=== PATIENT | female | born 1970 | race Caucasian/White ===

== ENCOUNTER 2022-10-21 06:34 | Outpatient (REF) | payer OTHER, SELFPAY ==
[2022-10-21 11:16] LABS: MANUAL DIFF FLAG NO
[2022-10-21 11:32] LABS: Basophils Percent Auto 0.5 % (0-2); Hematocrit 41.6 % (37.0-47.0); Hemoglobin 14.1 g/dl (12.0-16.0); Lymphocytes Absolute Auto 0.8 X10*3/uL (1.2-4.9); Mean Corpuscular HGB Conc 33.9 g/dl (31.0-35.0); Mean Corpuscular Hemoglobin 28.7 pg (27.0-33.0); Mean Corpuscular Volume 84.6 fL (80.0-98.0); Mean Platelet Volume 9.8 fL (9.4-12.3); Monocytes Absolute Auto 0.3 X10*3/uL (0.1-1.2); Monocytes Percent Auto 6.4 % (2-11); Neutrophils Absolute Auto 2.8 x10*3/uL (2.0-8.3); Neutrophils Percent Auto 72.1 % (45-73); Platelet Count 124 X10*3/uL (160-400); Red Blood Count 4.92 X10*6/uL (4.20-5.50); Red Cell Distribution Width 12.6 % (11.0-16.0); White Blood Count 3.9 X10*3/uL (4.8-10.8)
[2022-10-21 12:43] LABS: Alanine Aminotransferase 21 U/L (0-31); Albumin Level 4.4 g/dL (3.5-5.0); Alkaline Phosphatase 59 U/L (39-117); Anion Gap 11 (12-20); Aspartate Amino Transferase 19 U/L (5-31); Bilirubin Total 0.6 mg/dL (0.0-1.0); Blood Urea Nitrogen 12 mg/dL (9-16); Calcium 9.6 mg/dL (8.4-10.2); Carbon Dioxide 27 mmol/L (22-29); Chloride 109 mmol/L (96-108); Cholesterol 235 mg/dL; Estimated Glomerular Filt Rate > 60; Glucose Fasting 107 mg/dL (60-99); HDL Cholesterol 77 mg/dL; LDL Cholesterol Calculated 140 mg/dl; Potassium 4.1 mmol/L (3.3-5.1); Sodium 143 mmol/L (135-145); Total Protein 6.8 g/dL (6.5-8.0); Triglycerides 93 mg/dL
[2022-10-21 13:01] LABS: Ferritin 25 ng/mL (10-250); Folate 18.7 ng/mL (> or = 4.0); Vitamin B12 528 pg/mL (200-900)
[2022-10-29 13:58] LABS: Vitamin D 25-OH, D2 <4 ng/mL; Vitamin D 25-OH, D3 28 ng/mL; Vitamin D 25-OH, Total 28 ng/mL (30-100)
== END 2022-10-21 06:35 | disposition home or self-care (01) ==
LOC: HO.HMGCLDS 06:34
PROVIDERS: PCP Internal Medicine; Visit Provider Internal Medicine
DX: Z00.01 Encounter for general adult medical examination with abnormal findings (principal); J45.20 Mild intermittent asthma, uncomplicated; K90.0 Celiac disease; Z13.220 Encounter for screening for lipoid disorders
CPT/HCPCS: 36415; 80053; 80061; 82306; 82607; 82728; 82746; 85025

== ENCOUNTER 2023-05-06 09:15 | Outpatient (REF) | payer OTHER, SELFPAY | END 2023-05-06 09:16 | disposition home or self-care (01) | LOC: HO.HOSX 09:15 | PROVIDERS: Visit Provider Orthopaedic Surgery | DX: Z13.89 Encounter for screening for other disorder (principal) ==

== ENCOUNTER 2023-05-06 11:36 | Outpatient (AMB) | payer OTHER, SELFPAY ==
--- NOTE | 2023-05-06 11:41 | MHC.OFFVIS ---
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 The patient states that she injured her right knee while running approximately 3 years ago. She twisted her knee and had acute onset of pain along the medial aspect of her knee. Since that time she has not been able to run or cycle because of her knee pain. She states that her right knee will give out several times per day. She has done physical therapy which aggravated her pain. She has had injections in the past which gave her no relief. She has also tried Tylenol and anti-inflammatory medicines which gave her minimal relief. Allergies Penicillins Allergy (Mild, Verified 05/06/23 11:50) Hives Sulfa (Sulfonamide Antibiotics) Allergy (Mild, Verified 05/06/23 11:50) Hives Medication List - Last Reconciled 05/06/23 by Natalio Braun MD albuterol sulfate 90 mcg/actuation (ProAir HFA) 1 inh inhalation QID PRN 30 days zolpidem (Ambien) 5 mg PO BEDTIME PFSH Family History (System 03/10/23 @ 13:29 by Celina Adkins) Mother Depression Social History (System 03/10/23 @ 13:29 by Celina Adkins) Housing: Apartment Patient Tobacco Use Status: Never used Tobacco e-Cigarette/Vaping Use: Never Used service: No Current occupational status: employed Current occupation: [employer] Cognitive needs: No Hearing needs: No Vision needs: Yes Physical Exam Const Other: Well-nourished well-developed very friendly female awake alert and oriented x3 in no acute distress Extrem Other: Bilateral lower extremity examination shows good capillary refill, no skin lesions noted, normal sensation light touch Right knee examination shows a minimal effusion, minimal crepitus with range of motion, tenderness along her medial joint line, positive Bryce's test, no instability Assessment & Plan Assessment & Plan (1) Right knee pain: Code(s): M25.561 - Pain in right knee Plan Ms. Ornelas presents with progressively worsening right knee pain and mechanical symptoms most likely due to a tear of her medial meniscus. Thus, I will send the patient for an MRI of her right knee for further evaluation. I will see her back once the MRI is completed to discuss the findings and treatment options. Feel free to call me at any time should questions regarding her orthopedic management arise. Thank you very much for asking me to see this very friendly patient. I spent 22 minutes in reviewing the patient's records and imaging studies, seeing the patient and documenting in the medical record. Orders: Orders MR knee RT wo con Today M25.561 - Pain in right knee Coding Level of Care Code New Pt Level 2 (09753) Diagnoses Right knee pain M25.561
[2023-05-06 11:50] VITALS: BMI 23.8
== END 2023-05-06 12:09 | disposition home or self-care (01) ==
PROVIDERS: PCP Internal Medicine; Visit Provider Orthopaedic Surgery
DX: M25.561 Pain in right knee (principal)
CPT/HCPCS: 99202

== ENCOUNTER 2023-10-27 14:30 | Outpatient (AMB) | payer OTHER, SELFPAY ==
--- NOTE | 2023-10-27 14:33 | MHC.PC.OV ---
Vital Signs 10/27/23 14:34 Height 5 ft 9 in Weight 172 lb 2 oz BMI 25.4 BP 134/92 H Blood Pressure Location Lt brachial Position Sitting Pulse 81 Pulse Source Pulse Oximeter Pulse Oximetry (%) 97 Oxygen Delivery Method Room Air Intake Visit Reasons: PE Allergies Penicillins Allergy (Mild, Verified 10/27/23 14:36) Hives Sulfa (Sulfonamide Antibiotics) Allergy (Mild, Verified 10/27/23 14:36) Hives Medication List - Last Reconciled 10/27/23 by Keena Mann MD No Known Home Meds Tobacco use date assessed: 10/27/23 Dental Screening Dental Screen Date: 10/27/23 Did you have a dental visit in the last 12 months?: Yes Did you have a dental problem in the last 6 months where you did not have access to dental care?: No Was dental information given to patient?: Patient has dentist HPI PE HPI Details Patient is a 53-year-old female came in today for physical exam Last year patient had labs it showed slightly low white count impaired fasting sugar and slightly low vitamin-D level Repeat lab order is already in the system Mammogram was this month at [facility] Patient had hysterectomy in 2011 secondary to fibroid tumor cervix was removed Colonoscopy was in 2021 in [place] patient also had EGD done at that time however we do not have the report Patient says that she has a report at home and she will provide with a copy. 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 She does have pain in her right knee off and on especially if she runs it becomes swollen Patient had MRI of her knee in 2022 that showed arthritic changes Patient will return in 1 year for physical exam PFSH Family History Mother Depression Social History Housing: Apartment Patient Tobacco Use Status: Never used Tobacco e-Cigarette/Vaping Use: Never Used service: No Current occupational status: employed Current occupation: [employer] Cognitive needs: No Hearing needs: No Vision needs: Yes Questionnaire PHQ-9 Over the last 2 weeks, how often have you been bothered by any of the following problems? 1. Little interest or pleasure in doing things: not at all 2. Feeling down, depressed, or hopeless: not at all 3. Trouble falling or staying asleep, or sleeping too much: not at all 4. Feeling tired or having little energy: not at all 5. Poor appetite or overeating: not at all 6. Feeling bad about yourself - or that you are a failure or have let yourself or your family down: not at all 7. Trouble concentrating on things, such as reading the newspaper or watching television: not at all 8. Moving or speaking so slowly that other people could have noticed. Or the opposite - being so fidgety or restless that you have been moving around a lot more than usual: not at all 9. Thoughts that you would be better off or of hurting yourself in some way: not at all Total score: 0 Depression Screening Interpretation: Negative Depression Screening Done: Yes 92373 - PHQ-9 Billing: Yes Source: Developed by Drs. Ivan Mueller, Kenia Alberts, Anatoly Minor and colleagues, with an educational jaxson from [employer]. Thrive Questionnaire Date Thrive assessed: 10/27/23 I am a: Patient What is your living situation today?: I have a steady place to live Within the past 12 months, did the food you bought not last and you didn't have the money to get more?: Never true Within the past 12 months, did you worry whether your food would run out before you got money to buy more?: Never true Do you have trouble paying for medicines?: No Do you have trouble getting transportation to medical appointments?: No Do you have trouble paying your heating and electricity bill?: No Do you have trouble taking care of your child, family member or friend?: No Do you have trouble with day-to-day activities such as bathing, preparing meals, shopping, managing finances, etc.?: No Are you currently unemployed and looking for a job?: No Are you interested in more education?: No Please select the resources that you would like help with: None Currently or been in a relationship where the following occur: no concerns reported THRIVE Score: 0 AUDIT C Alcohol Use Questionnaire (AUDIT-C) 1. How often do you have a drink containing alcohol?: Monthly or less 2. How many drinks containing alcohol do you have on a typical day when you are drinking?: 1 or 2 3. How often do you have six or more drinks on one occasion?: Never Total Score: 1 Score Reviewed/Action Taken: Yes MARGARET-7 AMB Questionnaire MARGARET-7 Date MARGARET - 7 assessed: 10/27/23 Feeling nervous, anxious, or on edge: 0 = Not at all Not being able to stop or control worryin = Not at all Worrying too much about different things: 0 = Not at all Trouble relaxin = Not at all Being so restless that it is hard to sit still: 0 = Not at all Becoming easily annoyed or irritable: 0 = Not at all Feeling afraid as if something awful might happen: 0 = Not at all Total MARGARET-7 score (0-4 normal; 5-9 mild; 10-14 moderate; 15-21 severe): 0 Source: Developed by Drs. Ivan Mueller, Kenia Alberts, Anatoly Minor and colleagues, with an educational jaxson from [employer]. MARGARET-7 Assessment Billing MARGARET-7 Assessment Tool: MARGARET-7 Assessment [id number] Review of Systems Const Denies chills, Denies fever(s) and Denies headache(s) Eyes Denies blurry vision ENT Denies headache(s), Denies nasal discharge, Denies nasal obstruction, Denies odynophagia and Denies sinus pain Card Denies chest pain at rest and Denies chest pain with activity Resp Denies cough and Denies hemoptysis GI Denies diarrhea, Denies odynophagia, Denies vomiting and Denies hematemesis Reports as per HPI Musc Denies abnormal gait Skin/Breast Reports as per HPI Neuro Denies Neuro-related abnormal movements, Denies Abnormal speech present, Denies abnormal gait, Denies headache(s) and Denies Sensory deficit (Neuro) Psych Denies mood swings and Denies paranoia Endo Reports as per HPI Braxton/Lymph Reports as per HPI Aller/Immun Reports as per HPI Physical exam (Primary Care) Vital Signs: Last Vital Signs Pulse 81 10/27/23 14:34 BP 134/92 H 10/27/23 14:34 Pulse Ox 97 10/27/23 14:34 Oxygen Delivery Method Room Air 10/27/23 14:34 BMI result Body Mass Index 25.4 Tobacco/Smoking Status: Tobacco use Status Tobacco use date assessed 10/27/23 10/27/23 14:37 Patient Tobacco Use Status Never used Tobacco 10/27/23 14:35 e-Cigarette/Vaping Use Never Used 10/27/23 14:35 PHQ-9: PHQ-9 Score PHQ-9: Total score 0 10/27/23 14:37 Depression Screening Interpretation: Negative Thrive Assessment: Date of Thrive Assessment Date Thrive assessed 10/27/23 10/27/23 14:37 Currently or been in a relationship where the following occur: no concerns reported Const General: cooperative, comfortable and no acute distress Orientation/consciousness: patient oriented x3 HENMT Head: Yes normocephalic and Yes atraumatic Eyes General: appearance normal, both eyes and all related structures Pupils: Equal, round and reactive pupils present EOM: EOMs intact bilaterally Neck Neck: Yes supple and No lymphadenopathy Thyroid: Thyroid normal Lymphatic: no lymphadenopathy noted Chest Breast/axilla palpation: normal palpation of the breasts Resp Effort & Inspection: normal respiratory effort and able to speak in complete sentences Auscultation: clear to auscultation bilaterally Cardio Heart sounds: S1 normal heart sound present and S2 normal heart sound present GI Palpation (GI): Soft to palpation and nontender Auscultation: normal bowel sounds General: Yes no CVA tenderness Back/Spine/Pelvis Back: no CVA tenderness Skin General skin exam: elasticity normal and turgor normal Neuro General: patient oriented x3 and gait normal Cranial nerves: Yes Equal, round and reactive pupils present Speech: No Abnormal speech present Sensory Exam: No Sensory deficit (Neuro) Coordination: tandem gait normal and Romberg test negative Extrem General: Yes normal exam except as noted and No edema Assessment and Plan Assessment & Plan (1) Encounter for general adult medical examination without abnormal findings: Code(s): Z00.00 - Encounter for general adult medical examination without abnormal findings (2) History of idiopathic thrombocytopenic purpura: Code(s): Z86.2 - Personal history of diseases of the blood and blood-forming organs and certain disorders involving the immune mechanism (3) Neutropenia: Code(s): D70.9 - Neutropenia, unspecified Qualifiers: Neutropenia type: unspecified Qualified Code(s): D70.9 - Neutropenia, unspecified (4) Vitamin D deficiency: Code(s): E55.9 - Vitamin D deficiency, unspecified (5) Impaired fasting blood sugar: Code(s): R73.01 - Impaired fasting glucose (6) Osteoarthritis of right knee: Code(s): M17.11 - Unilateral primary osteoarthritis, right knee Qualifiers: Osteoarthritis type: primary Qualified Code(s): M17.11 - Unilateral primary osteoarthritis, right knee Plan Patient is a 53-year-old female came in today for physical exam Last year patient had labs it showed slightly low white count impaired fasting sugar and slightly low vitamin-D level Repeat lab order is already in the system Mammogram was this month at [facility] Patient had hysterectomy in 2011 secondary to fibroid tumor cervix was removed Colonoscopy was in 2021 in [place] patient also had EGD done at that time however we do not have the report Patient says that she has a report at home and she will provide with a copy. 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 She does have pain in her right knee off and on especially if she runs it becomes swollen Patient had MRI of her knee in 2022 that showed arthritic changes Patient will return in 1 year for physical exam Coding Level of Care Code Est Pt Prev Care 40-64y(98157) Diagnoses Encounter for general adult medical examination without abnormal findings Z00.00 History of idiopathic thrombocytopenic purpura Z86.2 Neutropenia, unspecified type D70.9 Neutropenia type: unspecified Vitamin D deficiency E55.9 Impaired fasting blood sugar R73.01 Primary osteoarthritis of right knee M17.11 Osteoarthritis type: primary Additional Codes MARGARET-7 Assessment Billing - MARGARET-7 Assessment Tool: MARGARET-7 Assessment [id number] ([id number])
[2023-10-27 14:34] VITALS: BP 134/92; PULSE 81; O2SAT 97; BMI 25.4
== END 2023-10-27 15:00 | disposition home or self-care (01) ==
PROVIDERS: Visit Provider Internal Medicine
DX: Z00.00 Encounter for general adult medical examination without abnormal findings (principal); Z86.2 Personal history of diseases of the blood and blood-forming organs and certain disorders involving the immune mechanism; D70.9 Neutropenia, unspecified; E55.9 Vitamin D deficiency, unspecified; R73.01 Impaired fasting glucose; M17.11 Unilateral primary osteoarthritis, right knee
CPT/HCPCS: 99396

== ENCOUNTER 2023-11-29 08:20 | Outpatient (REF) | payer OTHER, SELFPAY ==
[2023-11-29 11:41] LABS: MANUAL DIFF FLAG NO
[2023-11-29 11:58] LABS: Basophils Percent Auto 0.2 % (0-2); Eosinophils Absolute Auto 0.1 X10*3/uL (0.0-0.4); Eosinophils Percent Auto 1.1 % (0-4); Hematocrit 38.4 % (37.0-47.0); Hemoglobin 13.3 g/dl (12.0-16.0); Imm Gran Abs Auto 0.01 X10*3/uL (0.00-0.03); Imm Gran Pct Auto 0.2 % (0.0-0.4); Lymphocytes Absolute Auto 0.6 X10*3/uL (1.2-4.9); Lymphocytes Percent Auto 12.5 % (20-40); Mean Corpuscular HGB Conc 34.6 g/dl (31.0-35.0); Mean Corpuscular Hemoglobin 29.6 pg (27.0-33.0); Mean Corpuscular Volume 85.3 fL (80.0-98.0); Mean Platelet Volume 10.3 fL (9.4-12.3); Monocytes Absolute Auto 0.3 X10*3/uL (0.1-1.2); Monocytes Percent Auto 6.7 % (2-11); Neutrophils Absolute Auto 3.6 x10*3/uL (2.0-8.3); Neutrophils Percent Auto 79.3 % (45-73); Platelet Count 110 X10*3/uL (160-400); Red Cell Distribution Width 12.6 % (11.0-16.0); White Blood Count 4.5 X10*3/uL (4.8-10.8)
[2023-11-29 12:05] LABS: Estimated Average Glucose 105 mg/dL; Hemoglobin A1c % 5.3 % (<6.0)
[2023-11-29 12:29] LABS: Alanine Aminotransferase 22 U/L (0-31); Albumin Level 4.2 g/dL (3.5-5.0); Alkaline Phosphatase 62 U/L (39-117); Anion Gap 10 (12-20); Aspartate Amino Transferase 20 U/L (5-31); Bilirubin Total 0.4 mg/dL (0.0-1.0); Blood Urea Nitrogen 12 mg/dL (9-16); Calcium 9.6 mg/dL (8.4-10.2); Carbon Dioxide 28 mmol/L (22-29); Chloride 108 mmol/L (96-108); Cholesterol 207 mg/dL (<200); Estimated Glomerular Filt Rate > 60; Glucose Fasting 105 mg/dL (60-99); HDL Cholesterol 70 mg/dL (>40); LDL Cholesterol Calculated 114 mg/dL (<100); Potassium 4.2 mmol/L (3.3-5.1); Sodium 142 mmol/L (135-145); Total Protein 6.9 g/dL (6.5-8.0); Triglycerides 119 mg/dL (<150)
[2023-12-03 10:38] LABS: Vitamin D 25-OH, D2 <4 ng/mL; Vitamin D 25-OH, D3 27 ng/mL; Vitamin D 25-OH, Total 27 ng/mL (30-100)
== END 2023-11-29 08:21 | disposition home or self-care (01) ==
LOC: HO.HMGCLDS 08:20
PROVIDERS: PCP Internal Medicine; Visit Provider Internal Medicine
DX: G47.9 Sleep disorder, unspecified (principal); Z86.2 Personal history of diseases of the blood and blood-forming organs and certain disorders involving the immune mechanism; D69.6 Thrombocytopenia, unspecified; D70.9 Neutropenia, unspecified; E55.9 Vitamin D deficiency, unspecified; R73.01 Impaired fasting glucose
CPT/HCPCS: 36415; 80053; 80061; 82306; 83036; 85025

== ENCOUNTER 2024-11-01 15:23 | Outpatient (AMB) | payer OTHER, SELFPAY ==
[2024-11-01 15:25] VITALS: BP 120/80; PULSE 86; O2SAT 98; BMI 24.8
--- NOTE | 2024-11-01 15:25 | A.OFFPC_ITS ---
Vital Signs 11/01/24 15:25 Height 5 ft 9 in Weight 168 lb BMI 24.8 BP 120/80 Blood Pressure Location Lt brachial Position Sitting Pulse 86 Pulse Source Pulse Oximeter Pulse Oximetry (%) 98 Oxygen Delivery Method Room Air Intake Visit Reasons: PE Amortization Schedule Clerk Required: No Accompanied by: Self / Same As Patient Allergies soy Allergy (Intermediate, Verified 11/01/24 15:31) Hives johnson Allergy (Mild, Verified 11/01/24 15:31) Hives peas Allergy (Mild, Verified 11/01/24 15:31) Hives Penicillins Allergy (Mild, Verified 11/01/24 15:31) Hives Sulfa (Sulfonamide Antibiotics) Allergy (Mild, Verified 11/01/24 15:31) Hives Medication List - Last Reconciled 11/01/24 by Keena Mann MD No Known Home Meds Tobacco use date assessed: 11/01/24 Dental Screening Dental Screen Date: 11/01/24 Did you have a dental visit in the last 12 months?: Yes Did you have a dental problem in the last 6 months where you did not have access to dental care?: No Was dental information given to patient?: Patient has dentist HPI PE HPI Details Physical exam appointment - The patient is a 54 year old female pr esenting for a wellness visit and management of her chronic conditions, particularly concerns regarding possible autoimmune flare. - She reported a painful condition affec ting her feet, particularly when exposed to cold temperatures, which she attributes to Raynaud's Phenomenon, a condition she has suspected for some time. - In her past, she mentioned having a po sitive antinuclear antibody test and had been evaluated by a hunting sales associate for symptoms including Raynaud's and swelling, suspected to be linked to Sjogren's Syndrome or Lupus. These symptoms seemed to have gone into remission suddenly. - Recently, she experienced hives, predo minantly on her legs and some on her forehead, following intake of a new multivitamin containing CoQ10, suggesting an allergy. - She noted her platelet counts have his torically been low, mentioning a diagnosis of Idiopathic Thrombocytopenic Purpura (ITP) that was confirmed during her recovery from recent surgery. - The patient has chronic symptoms such as a torn meniscus in the knee that causes her soreness, primarily when performing certain movements. - Fasting blood sugars have been elevate d around 105 mg/dL for several years. - On a prior colonoscopy in 2021, she di d not provide details of the findings yet. - The patient had a hysterectomy in 2011 due to a fibroid tumor. Medical History: - Sjogren's Syndrome ? - Autoimmune Disorder (possible Lupus) - Idiopathic Thrombocytopenic Purpura (I TP) - Raynaud's Phenomenon - Suspected Meniscal Tear Surgical History: - Hysterectomy (2011, secondary to fibro id tumor) - Rotator Cuff Surgery on the right side (April, date unspecified) Social History: - Reduced physical activities including less biking and yoga. - Recently started running again, essence ott to run approximately three miles with mild soreness afterwards. Family History: - Observations of similar symptoms toyin ott in the patient?s daughter, related to suspected auto-immune conditions (detailed diagnoses or confirmation not provided). Health Maintenance - Mammogram completed recently at [facility]. - Colonoscopy performed in 2021, by Dr. Felicity Alarcon within normal limit - OBGYN visit up-to-date. - Vitamin D supplementation was ongoing; however, currently stopped due to recent allergic reaction linked to CoQ10. 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 Diagnostic results Labs: - Slightly low white blood cell counts (between 3.9 to 4.5 k/uL, with normal being 4.8 k/uL) - Fasting blood sugar consistently at 10 5 mg/dL. - Historical positive SPENSER test. Patient Instructions - Avoid exposure to cold to manage Olga Lidia ud's Phenomenon. - Discontinue any supplements containing CoQ10 due to suspected allergy.. - Monitor symptoms related to autoimmune conditions and consult a hunting sales associate. - Follow up with completed labs, sharing results from upcoming tests with the specialist. - Schedule regular wellness checks and b ring any notable family health changes to attention. Review of Systems - General: No fever no chills - Neurological: No headaches no dizzin ess - Ear nose throat: No sore throat no hearing difficulty no ear pain - Cardiovascular: No syncope, no chest pain, no palpitations - Gastrointestinal: No nausea vomiting or diarrhea - Endocrine: No polyuria polydipsia no heat intolerance - Genitourinary: No dysuria - Skin: No new complaints Physical Exam General: Cooperative, healthy appearing, comfortable, no acute distress Orientation: Patient oriented x3 Head: Normal to inspection Ears: Within normal limit visually Nose: Normal external nose present Face and sinus: Normal facial exam Eyes: Appearance normal, extraocular movement intact pupils reactive Neck: Normal visual inspection and supple Respiratory: Normal respiratory effort and able to speak in complete sentences. Clear to auscultation, no stridor Cardiovascular: S1 and S2 RRR Breast exam by herself GI: Normal to inspection. Soft to palpation and nontender Skin: Turgor normal, no acute findings. Patient reports hives on legs and forehead, currently resolving. Neuro: Patient oriented x3, motor sensory intact, balance intact, tandem pass Extremities: Normal to inspection. PFSH Surgical History S/P JOEL (total abdominal hysterectomy) S/P rotator cuff surgery Family History Mother Depression Mental health problem Father Diabetes 1.5, managed as type 1 Social History Housing: Apartment Patient Tobacco Use Status: Never used Tobacco e-Cigarette/Vaping Use: Never Used service: No Current occupational status: employed Current occupation: [employer] Cognitive needs: No Hearing needs: No Vision needs: Yes Questionnaire PHQ-9 Over the last 2 weeks, how often have you been bothered by any of the following problems? 1. Little interest or pleasure in doing things: not at all 2. Feeling down, depressed, or hopeless: not at all 3. Trouble falling or staying asleep, or sleeping too much: not at all 4. Feeling tired or having little energy: not at all 5. Poor appetite or overeating: not at all 6. Feeling bad about yourself - or that you are a failure or have let yourself or your family down: not at all 7. Trouble concentrating on things, such as reading the newspaper or watching television: not at all 8. Moving or speaking so slowly that other people could have noticed. Or the opposite - being so fidgety or restless that you have been moving around a lot more than usual: not at all 9. Thoughts that you would be better off or of hurting yourself in some way: not at all Total score: 0 Depression Screening Interpretation: Negative Depression Screening Done: Yes 08761 - PHQ-9 Billing: Yes Source: Developed by Drs. Ivan Mueller, Kenia Alberts, Anatoly Minor and colleagues, with an educational jaxson from [employer]. Thrive Questionnaire Date Thrive assessed: 11/01/24 I am a: Patient What is your living situation today?: I have a steady place to live Within the past 12 months, did the food you bought not last and you didn't have the money to get more?: Never true Within the past 12 months, did you worry whether your food would run out before you got money to buy more?: Never true Do you have trouble paying for medicines?: No Do you have trouble getting transportation to medical appointments?: No Do you have trouble paying your heating and electricity bill?: No Do you have trouble taking care of your child, family member or friend?: No Do you have trouble with day-to-day activities such as bathing, preparing meals, shopping, managing finances, etc.?: No Are you currently unemployed and looking for a job?: No Are you interested in more education?: No Please select the resources that you would like help with: None Currently or been in a relationship where the following occur: No concerns rep orted THRIVE Score: 0 AUDIT C Alcohol Use Questionnaire (AUDIT-C) 1. How often do you have a drink containing alcohol?: Monthly or less 2. How many drinks containing alcohol do you have on a typical day when you are drinking?: 1 or 2 3. How often do you have six or more drinks on one occasion?: Never Total Score: 1 Score Reviewed/Action Taken: Yes MARGARET-7 AMB Questionnaire MARGARET-7 Date MARGARET - 7 assessed: 11/01/24 Feeling nervous, anxious, or on edge: 0 = Not at all Not being able to stop or control worryin = Not at all Worrying too much about different things: 0 = Not at all Trouble relaxin = Not at all Being so restless that it is hard to sit still: 0 = Not at all Becoming easily annoyed or irritable: 0 = Not at all Feeling afraid as if something awful might happen: 0 = Not at all Total MARGARET-7 score (0-4 normal; 5-9 mild; 10-14 moderate; 15-21 severe): 0 Source: Developed by Drs. Ivan Mueller, Kenia Alberts, Anatoly Minor and colleagues, with an educational jaxson from [employer]. MARGARET-7 Assessment Billing MARGARET-7 Assessment Tool: MARGARET-7 Assessment 31262 Physical exam (Primary Care) Vital Signs: Last Vital Signs Pulse 86 11/01/24 15:25 BP 120/80 11/01/24 15:25 Pulse Ox 98 11/01/24 15:25 Oxygen Delivery Method Room Air 11/01/24 15:25 BMI result Body Mass Index 24.8 Tobacco/Smoking Status: Tobacco use Status Tobacco use date assessed 11/01/24 11/01/24 15:27 Patient Tobacco Use Status Never used Tobacco 11/01/24 15:27 e-Cigarette/Vaping Use Never Used 11/01/24 15:27 PHQ-9: PHQ-9 Score PHQ-9: Total score 0 11/01/24 15:33 Depression Screening Interpretation: Negative Thrive Assessment: Date of Thrive Assessment Date Thrive assessed 11/01/24 11/01/24 15:33 Currently or been in a relationship where the following occur: No concerns reported Coding Level of Care Code Est Pt Level 3 (44446) Est Pt Prev Care 40-64y(49306) Diagnoses Encounter for general adult medical examination without abnormal findings Z00.00 Autoimmune disorder D89.89 Multiple food allergies Z91.018 Thrombocytopenia D69.6 Neutropenia, unspecified type D70.9 Neutropenia type: unspecified Vitamin D deficiency E55.9 Impaired fasting blood sugar R73.01 Raynaud's phenomenon without gangrene I73.00 Raynaud?s-associated gangrene presence: without gangrene SPENSER positive R76.8 Additional Codes MARGARET-7 Assessment Billing - MARGARET-7 Assessment Tool: MARGARET-7 Assessment 29430 ([id number]) PHQ-9 - 02227 - PHQ-9 Billing: Yes ([id number]) Assessment & Plan Assessment & Plan (1) Encounter for general adult medical examination without abnormal findings: Code(s): Z00.00 - Encounter for general adult medical examination without abnormal findings Category: Medical (2) Autoimmune disorder: Code(s): D89.89 - Other specified disorders involving the immune mechanism, not elsewhere classified Category: Medical (3) Multiple food allergies: Code(s): Z91.018 - Allergy to other foods Category: Medical (4) Thrombocytopenia: Code(s): D69.6 - Thrombocytopenia, unspecified Category: Medical (5) Neutropenia: Code(s): D70.9 - Neutropenia, unspecified Category: Medical Qualifiers: Neutropenia type: unspecified Qualified Code(s): D70.9 - Neutropenia, unspecified (6) Vitamin D deficiency: Code(s): E55.9 - Vitamin D deficiency, unspecified Category: Medical (7) Impaired fasting blood sugar: Code(s): R73.01 - Impaired fasting glucose Category: Medical (8) Raynaud's phenomenon: Code(s): I73.00 - Raynaud's syndrome without gangrene Category: Medical Qualifiers: Raynaud?s-associated gangrene presence: without gangrene Qualified Code(s): I73.00 - Raynaud's syndrome without gangrene (9) SPENSER positive: Code(s): R76.8 - Other specified abnormal immunological findings in serum Category: Medical Plan Physical exam appointment - The patient is a 54 year old female presenting for a wellness visit and management of her chronic conditions, particularly concerns regarding possible autoimmune flare. - She reported a painful condition affecting her feet, particularly when exposed to cold temperatures, which she attributes to Raynaud's Phenomenon, a condition she has suspected for some time. - In her past, she mentioned having a positive antinuclear antibody test and had been evaluated by a hunting sales associate for symptoms including Raynaud's and swelling, suspected to be linked to Sjogren's Syndrome or Lupus. These symptoms seemed to have gone into remission suddenly. - Recently, she experienced hives, predominantly on her legs and some on her forehead, following intake of a new multivitamin containing CoQ10, suggesting an allergy. - She noted her platelet counts have historically been low, mentioning a diagnosis of Idiopathic Thrombocytopenic Purpura (ITP) that was confirmed during her recovery from recent surgery. - The patient has chronic symptoms such as a torn meniscus in the knee that causes her soreness, primarily when performing certain movements. - Fasting blood sugars have been elevated around 105 mg/dL for several years. - On a prior colonoscopy in 2021, she did not provide details of the findings yet. - The patient had a hysterectomy in 2011 due to a fibroid tumor. Medical History: - Sjogren's Syndrome ? - Autoimmune Disorder (possible Lupus) - Idiopathic Thrombocytopenic Purpura (ITP) - Raynaud's Phenomenon - Suspected Meniscal Tear Surgical History: - Hysterectomy (2011, secondary to fibroid tumor) - Rotator Cuff Surgery on the right side (April, date unspecified) Social History: - Reduced physical activities including less biking and yoga. - Recently started running again, managing to run approximately three miles with mild soreness afterwards. Family History: - Observations of similar symptoms arising in the patient?s daughter, related to suspected auto-immune conditions (detailed diagnoses or confirmation not provided). Health Maintenance - Mammogram completed recently at [facility]. - Colonoscopy performed in 2021, - OBGYN visit up-to-date. - Vitamin D supplementation was ongoing; however, currently stopped due to recent allergic reaction linked to CoQ10. Employment - Works at [employer], prefers nearby location for care. Diagnostic results Labs: - Slightly low white blood cell counts (between 3.9 to 4.5 k/uL, with normal being 4.8 k/uL) - Fasting blood sugar consistently at 105 mg/dL. - Historical positive SPENSER test. Patient Instructions - Avoid exposure to cold to manage Raynaud's Phenomenon. - Discontinue any supplements containing CoQ10 due to suspected allergy.. - Monitor symptoms related to autoimmune conditions and consult a hunting sales associate. - Follow up with completed labs, sharing results from upcoming tests with the specialist. - Schedule regular wellness checks and bring any notable family health changes to attention. Orders: Orders Complete Blood Count Auto Diff Today D69.6 - Thrombocytopenia, unspecified, D70.9 - Neutropenia, unspecified, D89.89 - Other specified disorders involving the immune mechanism, not elsewhere classified, E55.9 - Vitamin D deficiency, unspecified, I73.00 - Raynaud's syndrome without gangrene, R73.01 - Impaired fasting glucose, R76.8 - Other specified abnormal immunological findings in serum, Z00.00 - Encounter for general adult medical examination without abnormal findings, Z91.018 - Allergy to other foods Comprehensive [place]. Panel Fast Today D69.6 - Thrombocytopenia, unspecified, D70.9 - Neutropenia, unspecified, D89.89 - Other specified disorders involving the immune mechanism, not elsewhere classified, E55.9 - Vitamin D deficiency, unspecified, I73.00 - Raynaud's syndrome without gangrene, R73.01 - Impaired fasting glucose, R76.8 - Other specified abnormal immunological findings in serum, Z00.00 - Encounter for general adult medical examination without abnormal findings, Z91.018 - Allergy to other foods Lipid Panel Today D69.6 - Thrombocytopenia, unspecified, D70.9 - Neutropenia, unspecified, D89.89 - Other specified disorders involving the immune mechanism, not elsewhere classified, E55.9 - Vitamin D deficiency, unspecified, I73.00 - Raynaud's syndrome without gangrene, R73.01 - Impaired fasting glucose, R76.8 - Other specified abnormal immunological findings in serum, Z00.00 - Encounter for general adult medical examination without abnormal findings, Z91.018 - Allergy to other foods Vitamin D 25-OH (D2 and D3) Today D69.6 - Thrombocytopenia, unspecified, D70.9 - Neutropenia, unspecified, D89.89 - Other specified disorders involving the immune mechanism, not elsewhere classified, E55.9 - Vitamin D deficiency, unspecified, I73.00 - Raynaud's syndrome without gangrene, R73.01 - Impaired fasting glucose, R76.8 - Other specified abnormal immunological findings in serum, Z00.00 - Encounter for general adult medical examination without abnormal findings, Z91.018 - Allergy to other foods TSH reflex Free T4 Today D69.6 - Thrombocytopenia, unspecified, D70.9 - Neutropenia, unspecified, D89.89 - Other specified disorders involving the immune mechanism, not elsewhere classified, E55.9 - Vitamin D deficiency, unspecified, I73.00 - Raynaud's syndrome without gangrene, R73.01 - Impaired fasting glucose, R76.8 - Other specified abnormal immunological findings in serum, Z00.00 - Encounter for general adult medical examination without abnormal findings, Z91.018 - Allergy to other foods Hemoglobin A1c Today D69.6 - Thrombocytopenia, unspecified, D70.9 - Neutropenia, unspecified, D89.89 - Other specified disorders involving the immune mechanism, not elsewhere classified, E55.9 - Vitamin D deficiency, unspecified, I73.00 - Raynaud's syndrome without gangrene, R73.01 - Impaired fasting glucose, R76.8 - Other specified abnormal immunological findings in serum, Z00.00 - Encounter for general adult medical examination without abnormal findings, Z91.018 - Allergy to other foods Vitamin B12 Today D69.6 - Thrombocytopenia, unspecified, D70.9 - Neutropenia, unspecified, D89.89 - Other specified disorders involving the immune mechanism, not elsewhere classified, E55.9 - Vitamin D deficiency, unspecified, I73.00 - Raynaud's syndrome without gangrene, R73.01 - Impaired fasting glucose, R76.8 - Other specified abnormal immunological findings in serum, Z00.00 - Encounter for general adult medical examination without abnormal findings, Z91.018 - Allergy to other foods Referrals Rheumatology Referral D89.89 - Other specified disorders involving the immune mechanism, not elsewhere classified
== END 2024-11-01 15:59 | disposition home or self-care (01) ==
LOC: HO.HMCC 15:24
PROVIDERS: PCP Internal Medicine; Visit Provider Internal Medicine
DX: Z00.00 Encounter for general adult medical examination without abnormal findings (principal); D89.89 Other specified disorders involving the immune mechanism, not elsewhere classified; Z91.018 Allergy to other foods; D69.6 Thrombocytopenia, unspecified; D70.9 Neutropenia, unspecified; E55.9 Vitamin D deficiency, unspecified; R73.01 Impaired fasting glucose; I73.00 Raynaud's syndrome without gangrene; R76.8 Other specified abnormal immunological findings in serum

== ENCOUNTER → 2024-11-01 15:23 | Outpatient (BNVA) | payer OTHER, SELFPAY | PROVIDERS: PCP Internal Medicine; Visit Provider Internal Medicine | DX: Z00.00 Encounter for general adult medical examination without abnormal findings (principal); D89.89 Other specified disorders involving the immune mechanism, not elsewhere classified; D69.6 Thrombocytopenia, unspecified; D70.9 Neutropenia, unspecified; E55.9 Vitamin D deficiency, unspecified; R73.01 Impaired fasting glucose; I73.00 Raynaud's syndrome without gangrene; R76.8 Other specified abnormal immunological findings in serum; Z91.018 Allergy to other foods | CPT/HCPCS: 96127 ==

== ENCOUNTER 2024-11-11 09:46 | Outpatient (REF) | payer OTHER, SELFPAY ==
[2024-11-11 09:58] LABS: MANUAL DIFF FLAG NO
[2024-11-11 10:31] LABS: Basophils Percent Auto 0.6 % (0-2); Eosinophils Percent Auto 0.6 % (0-4); Hematocrit 41.5 % (37.0-47.0); Hemoglobin 14.3 g/dl (12.0-16.0); Imm Gran Abs Auto 0.01 X10*3/uL (0.00-0.03); Imm Gran Pct Auto 0.3 % (0.0-0.4); Lymphocytes Absolute Auto 0.6 X10*3/uL (1.2-4.9); Mean Corpuscular HGB Conc 34.5 g/dl (31.0-35.0); Mean Corpuscular Hemoglobin 29.4 pg (27.0-33.0); Mean Corpuscular Volume 85.2 fL (80.0-98.0); Mean Platelet Volume 9.8 fL (9.4-12.3); Monocytes Absolute Auto 0.2 X10*3/uL (0.1-1.2); Monocytes Percent Auto 5.7 % (2-11); Neutrophils Absolute Auto 2.4 x10*3/uL (2.0-8.3); Neutrophils Percent Auto 74.8 % (45-73); Platelet Count 128 X10*3/uL (160-400); Red Blood Count 4.87 X10*6/uL (4.20-5.50); Red Cell Distribution Width 12.7 % (11.0-16.0); White Blood Count 3.2 X10*3/uL (4.8-10.8)
[2024-11-11 10:47] LABS: Estimated Average Glucose 105 mg/dL; Hemoglobin A1c % 5.3 % (<6.0)
[2024-11-11 11:14] LABS: Alanine Aminotransferase 26 U/L (0-31); Albumin Level 4.4 g/dL (3.5-5.0); Alkaline Phosphatase 59 U/L (39-117); Anion Gap 11 (12-20); Aspartate Amino Transferase 23 U/L (5-31); Bilirubin Total 0.6 mg/dL (0.0-1.0); Blood Urea Nitrogen 16 mg/dL (9-16); Calcium 9.3 mg/dL (8.4-10.2); Carbon Dioxide 28 mmol/L (22-29); Chloride 109 mmol/L (96-108); Cholesterol 232 mg/dL (<200); Estimated Glomerular Filt Rate > 60; Glucose Fasting 102 mg/dL (60-99); HDL Cholesterol 79 mg/dL (>40); LDL Cholesterol Calculated 136 mg/dL (<100); Potassium 4.1 mmol/L (3.3-5.1); Sodium 144 mmol/L (135-145); Total Protein 6.5 g/dL (6.5-8.0); Triglycerides 86 mg/dL (<150)
[2024-11-11 11:32] LABS: TSH reflex Free T4 1.74 uIU/mL (0.32-4.0)
[2024-11-11 11:34] LABS: Vitamin B12 358 pg/mL (200-900)
[2024-11-18 16:03] LABS: Vitamin D 25-OH, D2 <4 ng/mL; Vitamin D 25-OH, D3 54 ng/mL; Vitamin D 25-OH, Total 54 ng/mL (30-100)
== END 2024-11-11 09:47 | disposition home or self-care (01) ==
LOC: HO.LAB 09:46
PROVIDERS: PCP Internal Medicine; Visit Provider Internal Medicine
DX: R73.01 Impaired fasting glucose (principal); R76.8 Other specified abnormal immunological findings in serum; I73.00 Raynaud's syndrome without gangrene; D89.89 Other specified disorders involving the immune mechanism, not elsewhere classified; Z91.018 Allergy to other foods; D69.6 Thrombocytopenia, unspecified; D70.9 Neutropenia, unspecified; E55.9 Vitamin D deficiency, unspecified; Z13.6 Encounter for screening for cardiovascular disorders; Z00.00 Encounter for general adult medical examination without abnormal findings
CPT/HCPCS: 36415; 80053; 80061; 82306; 82607; 83036; 84443; 85025